=== PATIENT | female | born 1955 | race Caucasian/White ===

== ENCOUNTER 2018-05-07 10:57 | Inpatient (IN) ==
--- NOTE | 2018-05-07 11:34 | Emergency Department Note ---
Disposition Clinical Impression: Pancreatic abnormality, Liver mass Abdominal pain Qualifiers: Abdominal location: epigastric Qualified Code(s): R10.13 - Epigastric pain Disposition: Admitted As Inpatient Condition: Fair General Adult HPI - General Stated complaint: abd pain Time Seen by Provider: 05/07/18 11:00 Source: patient Limitations: no limitations Nursing Notes Reviewed: Yes Vital Signs Reviewed: Yes - History of Present Illness HPI Narrative: 62 y/o F hx DM and COPD present for worsening epigastric pain onset two weeks ago with constant ache and intermitting sharp pain radiation along bra line to back. Radiating pain into thoracic spine between shoulders. No change in pain by food but worse with deep breath. Associated symptoms of fluttering feeling in her chest . For last few months she had episodes of headache & lightheadedness with tunnel vision worse when stands up quickly. Increased dyspnea with exertion but cough at baseline. Pain worse in last four days and her leftover vicodin ran out. Admits worsening reguritation, constipation and nausea but denies vomiting or diarrhea. History of chronic constipation with last BM over 5 days ago non painful History of chest pain work up a few years ago but she doesn't remember what diagnosis was but took nitroglcerin for it. Per past reports in 2017 she had negative stress test and normal Holter monitor. Onset (ago): day(s) Pain Scale: 6 Quality: stabbing, aching Consistency: constant - Related Data Home Medications Medication Instructions Recorded Confirmed Amlodipine Besylate 10 mg PO DAILY 05/07/18 05/07/18 Aspirin [Lo-Dose Aspirin EC] 81 mg PO DAILY 05/07/18 05/07/18 Insulin Glargine,Hum.rec.anlog 28 unit SQ HS 05/07/18 05/07/18 [Lantus Solostar] Levothyroxine Sodium [Levoxyl] 75 mcg PO DAILY 05/07/18 05/07/18 Meloxicam 7.5 mg PO DAILY 05/07/18 05/07/18 Metformin HCl 500 mg PO BID 05/07/18 05/07/18 Pioglitazone HCl 30 mg PO DAILY 05/07/18 05/07/18 Pregabalin [Lyrica] 150 mg PO TID 05/07/18 05/07/18 RX: Furosemide [Lasix] 20 mg PO DAILY 05/07/18 05/07/18 RX: Lisinopril [Zestril] 20 mg PO DAILY 05/07/18 05/07/18 Rosuvastatin Calcium 40 mg PO DAILY 05/07/18 05/07/18 Tizanidine HCl 4 mg PO HS 05/07/18 05/07/18 Allergies Allergy/AdvReac Type Severity Reaction Status Date / Time codeine AdvReac Vomiting Verified 05/07/18 11:12 Eyes: Reports: vision change Cardiovascular: Reports: palpitations, dyspnea on exertion. Denies: chest pain Respiratory: Reports: cough, dyspnea, wheezes Gastrointestinal: Reports: abdominal pain, nausea, constipation. Denies: vomiting, diarrhea Genitourinary: Denies: urgency, dysuria, frequency Musculoskeletal: Reports: back pain, myalgia Integumentary: Denies: rash Neurological: Reports: headache, weakness Psychiatric: Reports: anxiety Past Medical History - Past Medical History Medical history: Reports: arthritis, diabetes, fibromyalgia, hypertension, other Psychiatric history: Reports: no psych history - Social History Smoking Status: Current every day smoker Smokeless Tobacco Status: No Alcohol use: Reports: none Drug use: Reports: none Physical Exam - General Limitations: no limitations General appearance: alert, in no apparent distress - Head Head exam: atraumatic, normocephalic - Eye Eye exam: Present: normal appearance, EOMI - Neck Neck exam: Present: normal inspection, full ROM - Chest Chest inspection: Present: normal inspection, symmetric chest wall rise. Absent: tenderness - Respiratory Respiratory exam: Present: normal lung sounds bilaterally. Absent: respiratory distress, wheezes - Cardiovascular Cardiovascular exam: Present: regular rate, normal rhythm, normal heart sounds - Abdominal Exam Abdominal exam: Present: soft, tenderness, distention, hypoactive bowel sounds, mass (deep siomara mass appro 2 cm in diameter located in epigastric region, non- pulsing). Absent: guarding, rebound Abdominal tenderness: Present: epigastrium - Extremities Exam Extremities exam: Present: normal inspection, full ROM. Absent: tenderness, pedal edema - Back Exam Back exam: Present: normal inspection, full ROM. Absent: tenderness, vertebral tenderness - Neurological Exam Neurological exam: Present: alert, oriented X3 - Psychiatric Psychiatric exam: Present: agitated, anxious - Skin Skin exam: Present: warm, dry, intact. Absent: rash, erythema Course Vital Signs Temperature 97.5 F L 05/07/18 11:01 Pulse Rate 75 05/07/18 11:01 Respiratory Rate 20 05/07/18 11:01 Blood Pressure 137/50 05/07/18 11:01 O2 Sat by Pulse Oximetry 99 05/07/18 11:01 Temperature 97.5 F L 05/07/18 11:07 Pulse Rate 95 05/07/18 14:09 Respiratory Rate 16 05/07/18 14:09 Blood Pressure 125/75 05/07/18 14:09 O2 Sat by Pulse Oximetry 96 05/07/18 14:09 Oxygen Delivery Oxygen Delivery Room Air Medical Decision Making - MDM Narrative Medical decision making narrative: 62 y/o F with hx DM, CKD and COPD presents with with severe epiastric and right chest pain radiation to her pain with nonspecific associated symptoms leading to wide ddx of gastric ulcer, cholecystitis, ACS, and pancreatitis. Stable vitals with mild tachycardia and stable ekg on presentation followed with essentially normal labs of CBC, CMP, troponin, lactic acid and lipase. Imaging of chest X- ray and US RUQ was grossly unremarkable. 1345 CT abd showed pancreatic mass and liver mass concerning for pancreatic cancer. Dr Colon spoke with Dr Saldana with Oncology about case who advised admission for pain and nausea control. They suggested CEA and CA -19 biomarkers and anticipate that she may need liver biopsy [address] Klein with hospitalist service and accepted for in patient treatment - Medical Records Medical records reviewed: Yes I reviewed the patient's medical records. - Lab Data Lab results reviewed: Yes I reviewed the patient's lab results. Result diagrams: 05/07/18 11:06 05/07/18 11:06 Lab Results 05/07/18 05/07/18 05/07/18 Range/Units 11:06 11:06 11:30 WBC 6.7 (4.3-11.1) K/mcL RBC 4.86 (3.82-4.97) M/mcL Hgb 14.1 (11.5-15.4) g/dL Hct 42.3 (35.3-44.9) % MCV 87.0 (83.0-100.0) fL MCH 29.0 (28.0-33.3) pg MCHC 33.3 (31.6-35.5) g/dL RDW 13.7 (11.5-14.5) % Plt Count 189 (140-400) K/mcL MPV 11.2 (9.4-12.4) fL Immature Gran % 0.1 (0-4) % Seg Neutrophils % 60.7 % Lymphocytes % 26.1 % Monocytes % 9.1 % Eosinophils % 3.7 % Basophils % 0.3 % Neutrophils # 4.1 (1.6-8.9) K/mcL Lymphocytes # 1.8 (0.6-4.6) K/mcL Monocytes # 0.6 (0.0-1.3) K/mcL Eosinophils # 0.3 (0.0-0.6) K/mcL Basophils # 0.0 (0.0-0.2) K/mcL PT (9.4-12.1) Seconds INR Sodium 141 (136-145) mEq/L Potassium 3.5 (3.5-5.1) mEq/L Chloride 109 H (98-107) mEq/L Carbon Dioxide 22 L (23-29) mEq/L BUN 19 (8-23) mg/dL Creatinine 0.79 (0.60-1.20) mg/dL Est GFR ( Amer) > 60 (> 60) Est GFR (Non-Af Amer) > 60 (> 60) BUN/Creatinine Ratio 24 (6-26) Glucose 130 H (70-105) mg/dL Calculated Osmolality 296 (280-300) Lactic Acid 1.2 (0.5-2.2) mmol/L Calcium 10.0 (8.6-10.3) mg/dL Total Bilirubin 0.8 (0.3-1.0) mg/dL Direct Bilirubin 0.2 (0.0-0.2) mg/dL Indirect Bilirubin 0.6 (0.0-1.2) mg/dL AST 15 (13-39) Units/L ALT 11 (7-52) Units/L Alkaline Phosphatase 96 (34-104) Units/L Troponin I < 0.03 (< 0.04) ng/mL Serum Total Protein 7.4 (6.4-8.9) g/dL Albumin 4.4 (3.5-5.7) g/dL Globulin 3.0 (2.4-3.5) g/dL Albumin/Globulin Ratio 1.5 (1.1-2.2) Lipase 37 (11-82) Units/L Carcinoembryonic Ag 67.3 H (Less than 5.0) ng/mL Urine Color (Yellow) Urine Clarity (Clear) Urine pH (5.0-8.0) pH Units Ur Specific [place] (1.010-1.025) Urine Protein (Neg-Trace) mg/dL Urine Glucose (UA) (Normal) mg/dL Urine Ketones (Negative) mg/dL Urine Blood (Negative) Urine Nitrite (Negative) Urine Bilirubin (Negative) Urine Urobilinogen (Normal) mg/dL Ur Leukocyte Esterase (Negative) Urine Microscopic RBC (0-3) per hpf Urine Microscopic WBC (0-3) per hpf Ur Squamous Epith Cells (None-Few) per lpf Urine Bacteria (None-Few) per hpf Hyaline Casts (None-Few) per lpf Ur Culture Indicated? (NO) 05/07/18 05/07/18 Range/Units 11:30 13:05 WBC (4.3-11.1) K/mcL RBC (3.82-4.97) M/mcL Hgb (11.5-15.4) g/dL Hct (35.3-44.9) % MCV (83.0-100.0) fL MCH (28.0-33.3) pg MCHC (31.6-35.5) g/dL RDW (11.5-14.5) % Plt Count (140-400) K/mcL MPV (9.4-12.4) fL Immature Gran % (0-4) % Seg Neutrophils % % Lymphocytes % % Monocytes % % Eosinophils % % Basophils % % Neutrophils # (1.6-8.9) K/mcL Lymphocytes # (0.6-4.6) K/mcL Monocytes # (0.0-1.3) K/mcL Eosinophils # (0.0-0.6) K/mcL Basophils # (0.0-0.2) K/mcL PT 13.1 H (9.4-12.1) Seconds INR 1.2 Sodium (136-145) mEq/L Potassium (3.5-5.1) mEq/L Chloride (98-107) mEq/L Carbon Dioxide (23-29) mEq/L BUN (8-23) mg/dL Creatinine (0.60-1.20) mg/dL Est GFR ( Amer) (> 60) Est GFR (Non-Af Amer) (> 60) BUN/Creatinine Ratio (6-26) Glucose (70-105) mg/dL Calculated Osmolality (280-300) Lactic Acid (0.5-2.2) mmol/L Calcium (8.6-10.3) mg/dL Total Bilirubin (0.3-1.0) mg/dL Direct Bilirubin (0.0-0.2) mg/dL Indirect Bilirubin (0.0-1.2) mg/dL AST (13-39) Units/L ALT (7-52) Units/L Alkaline Phosphatase (34-104) Units/L Troponin I (< 0.04) ng/mL Serum Total Protein (6.4-8.9) g/dL Albumin (3.5-5.7) g/dL Globulin (2.4-3.5) g/dL Albumin/Globulin Ratio (1.1-2.2) Lipase (11-82) Units/L Carcinoembryonic Ag (Less than 5.0) ng/mL Urine Color Yellow (Yellow) Urine Clarity Clear (Clear) Urine pH 6.5 (5.0-8.0) pH Units Ur Specific [place] 1.022 (1.010-1.025) Urine Protein Negative (Neg-Trace) mg/dL Urine Glucose (UA) Normal (Normal) mg/dL Urine Ketones Negative (Negative) mg/dL Urine Blood Negative (Negative) Urine Nitrite Negative (Negative) Urine Bilirubin Negative (Negative) Urine Urobilinogen Normal (Normal) mg/dL Ur Leukocyte Esterase Small H (Negative) Urine Microscopic RBC 0-3 (0-3) per hpf Urine Microscopic WBC 0-3 (0-3) per hpf Ur Squamous Epith Cells Moderate H (None-Few) per lpf Urine Bacteria None Seen (None-Few) per hpf Hyaline Casts None Seen (None-Few) per lpf Ur Culture Indicated? YES A (NO) - Radiology Data Radiology results reviewed: Yes I reviewed the patient's radiology results. Chest X-Ray 05/07/18 11:25 IMPRESSION: Focal area of lingular atelectasis or fibrosis. D/ / 05/07/2018 11:55:23 Jim Rodrigez MD / [facility] Interpreting Provider: Jim Rodrigez MD Abdomen/Pelvis CT 05/07/18 11:37 IMPRESSION: 1. Abnormal 3.7 x 3.6 cm heterogeneous though primarily low-attenuation mass within the pancreas, at the interface of the pancreatic body and pancreatic head, most consistent with primary pancreatic malignancy. There is associated obstruction of the pancreatic duct with dilatation evident and mild inflammatory change of the pancreatic tail, likely secondary to inflammation. 2. Multiple scattered nodules within the liver parenchyma, consistent with intrahepatic metastatic disease. 3. Mild lymphadenopathy within the peripancreatic space and dov hepatis, consistent with locoregional metastatic disease. 4. Cholelithiasis. Findings were discussed with Rayo Mccrary at 1330 hours on 05/07/2018. D/ / 05/07/2018 13:47:34 Deni Sterling MD / [facility] Interpreting Provider: Deni Sterling MD Gallbladder Ultrasound 05/07/18 11:37 IMPRESSION: Unremarkable right upper quadrant ultrasound. D/ / 05/07/2018 12:58:43 Jim Rodrigez MD / [facility] Interpreting Provider: Jim Rodrigez MD - EKG Data EKG #1 EKG shows normal: sinus rhythm, intervals, QRS complexes, ST-T waves Rate: normal Rhythm: NSR Interpretation: unchanged when compared to prior tracing (date) (01-15-2016) Attestation Statement - Attestation Attestation: Resident Attestation: I examined this patient and my medical decision making was reviewed with the Resident Physician. I agree with the documented findings, disposition and treatment plan as described except to the extent set forth below. We independently had [id number] contact with the patient. Patient presented for evaluation of worsening epigastric pain over the last 2 weeks. Patient describes intermittent pain radiating to the back. Patient describes pain between shoulder blades. Patient describes no specific characteristics is is not always worse with food and is not always worse with deep breaths. This time she does have significant nausea as well as significant pain. Patient has moderate epigastric tenderness. Patient will undergo further evaluation for both right upper quadrant tenderness as well as epigastric tenderness. Mild distress secondary to pain with moderate associated tenderness to the epigastric region without guarding or rebound. CT scan concerning for pancreatic lesion with metastasis to the liver. I did discuss with hematology oncology in regards to management and he requested a CEA as well as a CA 199. The patient will likely need to undergo liver biopsy with IR. Patient will be admitted for further symptom control as well as workup. I did discuss the diagnosis at bedside with both patient as well as son. All questions were answered to the best that we can at this time.
[2018-05-07] MEDS ORDERED: Ondansetron 4 MG/2 ML VIAL IVP ONE (11:36)
[2018-05-07] MEDS ORDERED: 0.9 % Sodium Chloride 1,000 ML IVC ONE (11:36)
[2018-05-07] MEDS ORDERED: *HR* HYDROmorphone 2 MG/ML SYRINGE IVP STA (11:36)
[2018-05-07] MEDS ORDERED: Isovue-370 500 ML BOTTLE IVP ONE (11:37)
[2018-05-07] MEDS ORDERED: Famotidine 20 MG/2 ML VIAL IVP ONE (11:40)
[2018-05-07 11:45] LABS: Basophils % 0.3 %; Eosinophils # 0.3 K/mcL (0.0-0.6); Eosinophils % 3.7 %; Hematocrit 42.3 % (35.3-44.9); Hemoglobin 14.1 g/dL (11.5-15.4); Immature Granulocytes % 0.1 % (0-4); Lymphocytes # 1.8 K/mcL (0.6-4.6); Lymphocytes % 26.1 %; Mean Corpuscular HGB Conc 33.3 g/dL (31.6-35.5); Mean Platelet Volume 11.2 fL (9.4-12.4); Monocytes # 0.6 K/mcL (0.0-1.3); Monocytes % 9.1 %; Neutrophils # 4.1 K/mcL (1.6-8.9); Platelet Count 189 K/mcL (140-400); Red Blood Count 4.86 M/mcL (3.82-4.97); Red Cell Distribution Width 13.7 % (11.5-14.5); Segmented Neutrophils % 60.7 %
[2018-05-07 12:05] LABS: Troponin I < 0.03 ng/mL (< 0.04)
[2018-05-07 12:06] LABS: Alanine Aminotransferase 11 Units/L (7-52); Albumin 4.4 g/dL (3.5-5.7); Albumin/Globulin Ratio 1.5 (1.1-2.2); Alkaline Phosphatase 96 Units/L (34-104); Aspartate Amino Transferase 15 Units/L (13-39); BUN/Creatinine Ratio 24 (6-26); Bilirubin,Direct 0.2 mg/dL (0.0-0.2); Bilirubin,Indirect 0.6 mg/dL (0.0-1.2); Bilirubin,Total 0.8 mg/dL (0.3-1.0); Blood Urea Nitrogen 19 mg/dL (8-23); Carbon Dioxide 22 mEq/L (23-29); Chloride 109 mEq/L (98-107); Glucose 130 mg/dL (70-105); Lipase 37 Units/L (11-82); Osmolality,Calculated 296 (280-300); Potassium 3.5 mEq/L (3.5-5.1); Sodium 141 mEq/L (136-145); Total Protein 7.4 g/dL (6.4-8.9); eGFR For Non-African Americans > 60 (> 60)
[2018-05-07] MEDS ORDERED: GI Cocktail 40 ML EACH PO ONE (13:11)
[2018-05-07 13:14] LABS: Bilirubin,Urine Negative (Negative); Blood,Urine Negative (Negative); Clarity,Urine Clear (Clear); Color,Urine Yellow (Yellow); Glucose,Urine (UA) Normal (Normal); Ketones,Urine Negative (Negative); Leukocyte Esterase,Urine Small (Negative); Nitrite,Urine Negative (Negative); PH,Urine 6.5 pH Units (5.0-8.0); Protein,Urine Negative (Neg-Trace); Specific Gravity,Urine 1.022 (1.010-1.025); Urobilinogen,Urine Normal (Normal)
[2018-05-07 13:16] LABS: Bacteria,Urine None Seen per hpf (None-Few); Hyaline Casts,Urine None Seen per lpf (None-Few); RBC,Urine 0-3 per hpf (0-3); Squamous Epithelial Cell,Urine Moderate per lpf (None-Few); WBC,Urine 0-3 per hpf (0-3)
[2018-05-07] MEDS ORDERED: Ondansetron ODT 4 MG TAB.RAPDIS SL PRN (13:45)
[2018-05-07] MEDS ORDERED: *HR* HYDROmorphone (PF) 1 MG/ML SYRINGE IVP PRN (13:59)
[2018-05-07 14:12] LABS: INR 1.2; Prothrombin Time 13.1 Seconds (9.4-12.1)
[2018-05-07 14:27] LABS: Carcinoembryonic Antigen 67.3 ng/mL (Less than 5.0)
[2018-05-07] MEDS ORDERED: 0.9 % Sodium Chloride 1,000 ML IVC SCH (14:30)
[2018-05-07] MEDS ORDERED: Naloxone 0.4 MG/ML INJ IVP PRN (15:00)
--- NOTE | 2018-05-07 15:04 | Internal Med History&Physical ---
Date of Encounter: 05/07/18 Time of Encounter: 15:02 Internal Medicine - H&P: HPI Chief complaint: abdominal pain Admitted From: Home Plans for Post Hospital Care: Home History of present illness: Ms. Arora is a 62 year old female past medical history of diabetes, COPD, fibromyalgia, Hypertension and chronic back pain who came in with complain of 2 weeks of abdominal pain. Patient denies similar pain in past. Pain is present in epigastric and right upper quadrant region. Patient has associated nausea but denies any vomiting. Pain is more or less constant along the lower end of his chest along her bra line. The pain does radiate to her back. Pain is constant and sharp in nature and has been worsening over the course of the past 2 weeks. Pain does worse with deep breath. She has history of COPD and associ ated difficulty breathing but denies any unusually worsening of her breathing. She denies any burning urination. She does have some constipation.. She was using hydrocodone for past 3 days which she had left over from past. She had decreased appetite over past few weeks but does not know whether she had any significant weight loss. She does experience hot flashes for many years. Patient had initial workup done in ER. Patient had CT abdomen and pelvis and gallbladder ultrasound. There was no evidence of cholecystitis or ascites. CT showed 3.7 x 3.6 masses within pancreas and multiple scattered nodules within the liver parenchyma and mild peripancreatic lymphadenopathy. About mention history was confirmed during the interview. Patient was informed about the results of the CAT scan and was tearful on interview. Patient continued to have some nausea during the interview. Oncology was called in by ER physician. Past Med Surg Social Fam HX - Past Medical History Medical history: arthritis, diabetes, fibromyalgia, hypertension, other Additional medical history: chronic back pain, chronic hip pain Psychiatric history: no psych history - Past Surgical History Surgical History: no surgical history - Social History Smoking Status: Current every day smoker Smokeless Tobacco Status: No Alcohol use: none Drug use: none - Family History Sister Hx Family Reproductive Disorders: Yes Internal Medicine - H&P: Meds Amlodipine Besylate 10 mg PO DAILY 05/07/18 [History] Aspirin [Lo-Dose Aspirin EC] 81 mg PO DAILY 05/07/18 [History] Furosemide [Lasix] 20 mg PO DAILY 05/07/18 [History] Insulin Glargine,Hum.rec.anlog [Lantus Solostar] 28 unit SQ HS 05/07/18 [History] Levothyroxine Sodium [Levoxyl] 75 mcg PO DAILY 05/07/18 [History] Lisinopril [Zestril] 20 mg PO DAILY 05/07/18 [History] Meloxicam 7.5 mg PO DAILY 05/07/18 [History] Metformin HCl 500 mg PO BID 05/07/18 [History] Pioglitazone HCl 30 mg PO DAILY 05/07/18 [History] Pregabalin [Lyrica] 150 mg PO TID 05/07/18 [History] Rosuvastatin Calcium 40 mg PO DAILY 05/07/18 [History] Tizanidine HCl 4 mg PO HS 05/07/18 [History] Allergy/AdvReac Type Severity Reaction Status Date / Time codeine AdvReac Vomiting Verified 05/07/18 11:12 All Systems PM: A 10-system review of systems was performed and is negative for pertinent findings except as documented above in the HPI. - Constitutional Vitals: Temp Pulse Resp BP Pulse Ox 97.5 F L 85 16 118/76 96 05/07/18 11:07 05/07/18 14:56 05/07/18 14:56 05/07/18 14:56 05/07/18 14:56 Exam: Constitutional: Vitals as noted. Conversant. No Apparent Distress. Eyes : Sclera white, conjunctiva clear, no lid lag, PEARLA. ENT : Grossly normal hearing. Oropharyngeal exam unremarkable. Moist mucus membranes. No JVD, no cervical lymphadenopathy. no thyromegaly or mass. Respiratory : mild crackles at base. No accessory muscle use, rales, rhonchi or wheezes Cardiovascular : RRR, +S1, +S2. no murmur, gallop, rubs. No chest wall tenderness GI/Abdominal : Obese, Soft, Non-tender, Non-distended, normal bowel sounds, soft, no peritoneal signs. no orgenomegaly or mass appreciated. no hernia. Musculoskeletal: no deformity noted. no edema or cyanosis. warm extremities, p ulses palpable and symmetrical in UE/LE. no calf tenderness. Neurological: AO X3, CN II-XII grossly intact, grossly normal motor and sensory exam. Skin: No skin rash, lesions or ulcers noted. Pych: Good insight and judgement. Intact memory. AOx3. Tearful Internal Med - H&P Results - Labs CBC & Chem 7: 05/07/18 11:06 05/07/18 11:06 Labs: Short CBC 05/07/18 Range/Units 11:06 WBC 6.7 (4.3-11.1) K/mcL Hgb 14.1 (11.5-15.4) g/dL Hct 42.3 (35.3-44.9) % Plt Count 189 (140-400) K/mcL Neutrophils # 4.1 (1.6-8.9) K/mcL BMP 05/07/18 11:06 Sodium 141 Potassium 3.5 Chloride 109 H Carbon Dioxide 22 L BUN 19 Creatinine 0.79 Glucose 130 H Calcium 10.0 Cardiac Enzymes 05/07/18 Range/Units 11:06 Troponin I < 0.03 (< 0.04) ng/mL Liver Function 05/07/18 Range/Units 11:06 Total Bilirubin 0.8 (0.3-1.0) mg/dL Direct Bilirubin 0.2 (0.0-0.2) mg/dL AST 15 (13-39) Units/L ALT 11 (7-52) Units/L Alkaline Phosphatase 96 (34-104) Units/L Albumin 4.4 (3.5-5.7) g/dL Urine 05/07/18 Range/Units 13:05 Urine Color Yellow (Yellow) Urine Clarity Clear (Clear) Urine pH 6.5 (5.0-8.0) pH Units Ur Specific [place] 1.022 (1.010-1.025) Urine Protein Negative (Neg-Trace) mg/dL Urine Glucose (UA) Normal (Normal) mg/dL - EKG Data -: EKG Interpreted by Myself EKG shows normal: sinus rhythm - Impressions ITS Impressions Chest X-Ray 05/07/18 11:25 IMPRESSION: Focal area of lingular atelectasis or fibrosis. D/ / 05/07/2018 11:55:23 Jim Rodrigez MD / [facility] Interpreting Provider: Jim Rodrigez MD Abdomen/Pelvis CT 05/07/18 11:37 IMPRESSION: 1. Abnormal 3.7 x 3.6 cm heterogeneous though primarily low-attenuation mass within the pancreas, at the interface of the pancreatic body and pancreatic head, most consistent with primary pancreatic malignancy. There is associated obstruction of the pancreatic duct with dilatation evident and mild inflammatory change of the pancreatic tail, likely secondary to inflammation. 2. Multiple scattered nodules within the liver parenchyma, consistent with intrahepatic metastatic disease. 3. Mild lymphadenopathy within the peripancreatic space and dov hepatis, consistent with locoregional metastatic disease. 4. Cholelithiasis. Findings were discussed with Rayo Mccrary at 1330 hours on 05/07/2018. D/ / 05/07/2018 13:47:34 Deni Sterling MD / [facility] Interpreting Provider: Deni Sterling MD Gallbladder Ultrasound 05/07/18 11:37 IMPRESSION: Unremarkable right upper quadrant ultrasound. D/ / 05/07/2018 12:58:43 Jim Rodrigez MD / [facility] Interpreting Provider: Jim Rodrigez MD - Assessment and plan (1) Pancreatic mass Current Visit: Yes Status: Acute Assessment and plan: - Patient's abdominal pain likely related to pancreatic mass - CT evidence of likely metastasis to liver with possible local regional metastasis. - Oncology has been consulted who ordered CEA and CA -19 biomarkers. - Patient will likely need biopsy IR guided on Wednesday of liver lesion. - We will control symptoms of nausea and vomiting and abdominal pain with Zofran and percocet. (2) Diabetes Current Visit: Yes Status: Acute Assessment and plan: - Keep patient on levemir, sliding scale insulin and accuchecks. Qualifiers: Diabetes mellitus type: type 2 Diabetes mellitus penitentiary insulin use: with penitentiary use Qualified Code(s): E11.9 - Type 2 diabetes mellitus without complications; Z79.4 - MCC (current) use of insulin (3) HTN (hypertension) Current Visit: Yes Status: Acute Assessment and plan: - BP stable - continue home medication after confirmation Qualifiers: Hypertension type: essential hypertension Qualified Code(s): I10 - Essential (primary) hypertension (4) Fibromyalgia Current Visit: Yes Status: Acute Assessment and plan: - continue home medication after confirmation (5) Abdominal pain Current Visit: Yes Status: Acute Qualifiers: Abdominal location: epigastric Qualified Code(s): R10.13 - Epigastric pain (6) Liver mass Current Visit: Yes Status: Acute Assessment and plan: as above - Time Spent With Patient Total time spent is greater than 50% in coordination of care (as documented) at patient's floor/unit and/or counseling patient:
[2018-05-07] MEDS: *HR* Heparin 5,000 UNIT/ML VIAL SQ SCH ×2 (16:05→21:17)
[2018-05-07] MEDS: *HR* Promethazine 25 MG/ML VIAL IVP PRN (16:43)
[2018-05-07] MEDS: Insulin LISPRO 300 UNITS/3 ML VIAL SQ SCH (17:00)
[2018-05-07] MEDS ORDERED: Insulin DETEMIR 100 UNIT/ML X5UNITS SQ SCH (21:00)
[2018-05-07] MEDS: Pregabalin 75 MG CAPSULE PO SCH (21:17)
[2018-05-07] MEDS: tiZANidine 4 MG TABLET PO SCH (21:17)
[2018-05-08] MEDS: *HR* OxyCODONE/APAP 5/325 TABLET PO PRN ×3 (01:25→17:53)
[2018-05-08] MEDS ORDERED: traMADol 50 MG TABLET PO ONE (03:57)
[2018-05-08] MEDS: *HR* Heparin 5,000 UNIT/ML VIAL SQ SCH ×3 (04:08→20:42)
[2018-05-08] MEDS: Insulin LISPRO 300 UNITS/3 ML VIAL SQ SCH ×3 (07:56→17:53)
[2018-05-08] MEDS: amLODIPine 5 MG TABLET PO SCH (08:04)
[2018-05-08] MEDS: Lisinopril 20 MG TABLET PO SCH (08:05)
[2018-05-08] MEDS: Pregabalin 75 MG CAPSULE PO SCH ×3 (08:35→20:41)
[2018-05-08] MEDS: Furosemide 20 MG TABLET PO SCH (08:35)
[2018-05-08] MEDS ORDERED: Aspirin Enteric Coated 81 MG Tablet PO SCH (09:00)
--- NOTE | 2018-05-08 09:57 | Internal Med Progress Note ---
Hospitalist Progress Note - Encounter Date of Encounter: 05/08/18 Time of Encounter: 08:57 - Subjective Interval History: Patient seen and examined this morning. No overnight events. Pain better controlled than before but still present. Nausea improved. Denies new complains. - Exam Vitals: Temp Pulse Resp BP Pulse Ox 97.4 F L 59 16 113/68 96 05/08/18 07:14 05/08/18 07:14 05/08/18 07:14 05/08/18 07:14 05/08/18 07:14 Exam: Constitutional: Vitals as noted. Conversant. No Apparent Distress. Respiratory : mild crackles at base. No accessory muscle use, rales, rhonchi or wheezes Cardiovascular : RRR, +S1, +S2. no murmur, gallop, rubs. No chest wall tenderness GI/Abdominal : Obese, Soft, mild tenderness in RLQ, Non-distended, normal bowel sounds, soft, no peritoneal signs Musculoskeletal: no deformity noted. no edema or cyanosis. Neurological: AO X3, CN II-XII grossly intact, grossly normal motor and sensory exam. Pych: Good insight and judgement. Intact memory. AOx3. Tearful - Assessment and Plan (1) Pancreatic mass Current Visit: Yes Status: Acute (2) Diabetes Current Visit: Yes Status: Acute (3) HTN (hypertension) Current Visit: Yes Status: Acute (4) Fibromyalgia Current Visit: Yes Status: Acute (5) Abdominal pain Current Visit: Yes Status: Acute (6) Liver mass Current Visit: Yes Status: Acute (7) Lung nodule Current Visit: Yes Status: Acute - Summary of Assessment and Plan Summary of Assessment and Plan: Pancreatic mass - Patient's abdominal pain likely related to pancreatic mass - CT evidence of likely metastasis to liver with possible local regional metastasis. - Oncology consulted - CEA elevated and CA -19 pending - Will get Chest CT for metastatic workup. Also with h/o lung nodule - Plan for IR guided biopsy tomorrow of liver lesion. aspirin stopped. NPO after midnight - We will control symptoms of nausea and vomiting and abdominal pain with Zofran and percocet. Diabetes - c/w levemir, sliding scale insulin and accuchecks. Abnormal UA - Denies symptoms - Cultures negative - No antibiotics indicated. HTN - BP stable - continue home medication after confirmation Fibromyalgia - continue home medication after confirmation - Time Spent with Patient Total time spent is greater than 50% in coordination of care (as documented) at patient's floor/unit and/or counseling patient: Internal Medicine: Result - Labs CBC & Chem 7: 05/07/18 11:06 05/07/18 11:06 Labs: Short CBC 05/07/18 Range/Units 11:06 WBC 6.7 (4.3-11.1) K/mcL Hgb 14.1 (11.5-15.4) g/dL Hct 42.3 (35.3-44.9) % Plt Count 189 (140-400) K/mcL Neutrophils # 4.1 (1.6-8.9) K/mcL BMP 05/07/18 11:06 Sodium 141 Potassium 3.5 Chloride 109 H Carbon Dioxide 22 L BUN 19 Creatinine 0.79 Glucose 130 H Calcium 10.0 Cardiac Enzymes 05/07/18 Range/Units 11:06 Troponin I < 0.03 (< 0.04) ng/mL Liver Function 05/07/18 Range/Units 11:06 Total Bilirubin 0.8 (0.3-1.0) mg/dL Direct Bilirubin 0.2 (0.0-0.2) mg/dL AST 15 (13-39) Units/L ALT 11 (7-52) Units/L Alkaline Phosphatase 96 (34-104) Units/L Albumin 4.4 (3.5-5.7) g/dL Urine 05/07/18 Range/Units 13:05 Urine Color Yellow (Yellow) Urine Clarity Clear (Clear) Urine pH 6.5 (5.0-8.0) pH Units Ur Specific [place] 1.022 (1.010-1.025) Urine Protein Negative (Neg-Trace) mg/dL Urine Glucose (UA) Normal (Normal) mg/dL - ABG Interpretation ABG results: PT/INR, D-dimer PT 13.1 Seconds (9.4-12.1) H 05/07/18 11:30 - Impressions Impressions Chest X-Ray 05/07/18 11:25 IMPRESSION: Focal area of lingular atelectasis or fibrosis. D/ / 05/07/2018 11:55:23 Jim Rodrigez MD / [facility] Interpreting Provider: Jim Rodrigez MD Abdomen/Pelvis CT 05/07/18 11:37 IMPRESSION: 1. Abnormal 3.7 x 3.6 cm heterogeneous, though primarily low-attenuation, mass within the pancreas, at the interface of the pancreatic body and pancreatic head, most consistent with primary pancreatic malignancy. There is associated obstruction of the pancreatic duct with dilatation evident and mild inflammatory change of the pancreatic tail, likely secondary to ductal obstruction. 2. Multiple scattered nodules/masses within the liver parenchyma, consistent with intrahepatic metastatic disease. 3. Mild lymphadenopathy within the peripancreatic space and dov hepatis, consistent with locoregional metastatic disease. 4. Cholelithiasis. Findings were discussed with Rayo Mccrary at 1330 hours on 05/07/2018. D/ / 05/07/2018 13:47:34 Deni Sterling MD / [facility] Interpreting Provider: Deni Sterling MD Gallbladder Ultrasound 05/07/18 11:37 IMPRESSION: Unremarkable right upper quadrant ultrasound. D/ / 05/07/2018 12:58:43 Jim Rodrigez MD / [facility] Interpreting Provider: Jim Rodrigez MD Consult Discharge Plan - Plan Referrals: Ward Jordan DO [Primary Care Provider] - (2) Diabetes Qualifiers: Diabetes mellitus type: type 2 Diabetes mellitus fpc insulin use: with remote computer terminal operator use (3) HTN (hypertension) Qualifiers: Hypertension type: essential hypertension Qualified Code(s): I10 - Essential (primary) hypertension (5) Abdominal pain Qualifiers: Abdominal location: epigastric Qualified Code(s): R10.13 - Epigastric pain
--- NOTE | 2018-05-08 11:33 | Oncology Inp Consult Note ---
Date of Encounter: 05/09/18 Time of Encounter: 09:00 Assessment and Plan (1) Pancreatic mass Status: Acute Assessment and plan: pancreatic mass with possible metastatic disease in liver, with acute pain admitted for pain control and further work up. Imaging data reviewed, discussed with ED and hospital attending for liver biopsy in AM to obtain tissue diagnosis. LFTs, bilirubin is normal. CEA elevated and CA 19-9 pending. Complete work up with CT chest--findings reviewed. Possible diagnoses discussed with patient this morning. She is agreeable for a biopsy procedure. However patient is very reluctant to proceed with any sort of treatment which she states she does not want chemotherapy or surgery for her cancer. Pain control is adequate. She denies any emesis. Prognosis with and without treatment if malignancy is confirmed/presence of metastatic disease discussed with patient. Possible plan to d/c after biopsy if stable. - Data of Consult Requesting Physician: Dennis Estrada Primary Care Provider: Ward Jordan DO - Consult Narrative Reason for consult: pancreatic mass History of present illness: 62 yo female with medical history significant for COPD, HTN, hyperlipidemia, DM, hypothyroidism fibromyalgia who presented to [facility] ED with epigastric and back pain worsened 2 wks in duration with nausea. A CT abdomen with contrast showed an abnormal irregular mass at the interface of the pancreatic head with the pancreatic body, which appears heterogeneous in attenuation, and measures approximately 3.7 x 3.6 cm, multiple liver densities that could be metastatic. She is admitted for further w/u of pancreatic mass and for pain control. She is on hydromorphone for pain relief. GB US for RUQ pain was nl. CEA at 60~. Patient this morning reports that her symptoms started about 2 months ago when she was not feeling well. She denies much weight loss. Her pain is better controlled today. She denies any melena or hematochezia. Past Med Surg Social Fam HX - Past Medical History Medical history: arthritis, diabetes, fibromyalgia, hypertension, other Additional medical history: chronic back pain, chronic hip pain Psychiatric history: no psych history - Past Surgical History Surgical History: no surgical history - Social History Smoking Status: Current every day smoker Packs per day: 2 Smokeless Tobacco Status: No Alcohol use: none Drug use: none - Family History Sister Hx Family Reproductive Disorders: Yes Medications and Allergies Amlodipine Besylate 10 mg PO DAILY 05/07/18 [History] Aspirin [Lo-Dose Aspirin EC] 81 mg PO DAILY 05/07/18 [History] Furosemide [Lasix] 20 mg PO DAILY 05/07/18 [History] Insulin Glargine,Hum.rec.anlog [Lantus Solostar] 28 unit SQ HS 05/07/18 [History] Levothyroxine Sodium [Levoxyl] 75 mcg PO DAILY 05/07/18 [History] Lisinopril [Zestril] 20 mg PO DAILY 05/07/18 [History] Meloxicam 7.5 mg PO DAILY 05/07/18 [History] Metformin HCl 500 mg PO BID 05/07/18 [History] Pioglitazone HCl 30 mg PO DAILY 05/07/18 [History] Pregabalin [Lyrica] 150 mg PO TID 05/07/18 [History] Rosuvastatin Calcium 40 mg PO DAILY 05/07/18 [History] Tizanidine HCl 4 mg PO HS 05/07/18 [History] Allergy/AdvReac Type Severity Reaction Status Date / Time codeine AdvReac Vomiting Verified 05/07/18 11:12 All systems: reviewed and no additional remarkable complaints except as stated Review of systems: abdominal pain, nausea Oncology - Exam - Constitutional General appearance: no acute distress - Head Head exam: Present: atraumatic, normal inspection - Eye Eye exam: Present: conjuntiva pink, sclera anicteric - ENT ENT exam: Present: mucous membranes moist, normal oropharynx - Neck Neck exam: Present: full ROM Additional comments: no palpable adenopathy - Respiratory Respiratory exam: Present: CTAB Additional comments: bradley ae, clear - Cardiovascular Cardiovascular exam: Present: +S1, +S2 - GI/Abdominal GI/Abdominal exam: Present: distended, normal bowel sounds, soft Additional comments: non tender - Extremities Exam Additional comments: no edema or tenderness - Neurological Exam Neurological exam: Present: alert, CN II-XII intact, oriented X3, no focal deficits - Psychiatric Psychiatric exam: Present: normal mood Oncology Inpatient Results Labs: labs 05/08/[address] abd as noted above Consult Discharge Plan - Plan Referrals: Ward Jordan DO [Primary Care Provider] - Inpatient Charges Provider: Dr. Chely Saldana Consult - Inpatient: [id number]
[2018-05-08] MEDS ORDERED: Gabapentin 300 MG CAPSULE PO SCH (14:30)
[2018-05-08] MEDS: traMADol 50 MG TABLET PO PRN (15:47)
[2018-05-08] MEDS ORDERED: *HR* OxyCODONE Immed Rel 5 MG TABLET PO ONE (20:05)
[2018-05-08] MEDS: Ondansetron 4 MG/2 ML VIAL IVP PRN (20:39)
[2018-05-08] MEDS: tiZANidine 4 MG TABLET PO SCH (20:41)
[2018-05-08] MEDS: Insulin DETEMIR 100 UNIT/ML X5UNITS SQ SCH (20:42)
[2018-05-09] MEDS: *HR* Heparin 5,000 UNIT/ML VIAL SQ SCH ×3 (04:51→21:33)
[2018-05-09] MEDS: *HR* OxyCODONE/APAP 5/325 TABLET PO PRN ×3 (05:40→21:32)
[2018-05-09] MEDS: Pregabalin 75 MG CAPSULE PO SCH ×3 (08:13→21:33)
[2018-05-09] MEDS: Furosemide 20 MG TABLET PO SCH (08:13)
[2018-05-09] MEDS: Insulin LISPRO 300 UNITS/3 ML VIAL SQ SCH ×3 (08:14→17:05)
[2018-05-09] MEDS: Lisinopril 20 MG TABLET PO SCH (08:14)
[2018-05-09] MEDS: amLODIPine 5 MG TABLET PO SCH (08:14)
--- NOTE | 2018-05-09 10:08 | Internal Med Progress Note ---
Hospitalist Progress Note - Encounter Date of Encounter: 05/09/18 Time of Encounter: 10:07 - Subjective Interval History: Patient seen and examined this morning. No overnight events. Pain and Nausea improved. Denies new complains. Somewhat shocked by the news of cancer. Occasionally tearful. - Exam Vitals: Temp Pulse Resp BP Pulse Ox 98.4 F 63 14 98/61 94 05/09/18 06:39 05/09/18 06:39 05/09/18 06:39 05/09/18 06:39 05/09/18 08:10 Exam: Constitutional: Vitals as noted. Conversant. No Apparent Distress. Respiratory : mild crackles at base. No accessory muscle use, rales, rhonchi or wheezes Cardiovascular : RRR, +S1, +S2. no murmur, gallop, rubs. No chest wall tenderness GI/Abdominal : Obese, Soft, mild tenderness in RLQ, Non-distended, normal bowel sounds, soft, no peritoneal signs Musculoskeletal: no deformity noted. no edema or cyanosis. Neurological: AO X3, CN II-XII grossly intact, grossly normal motor and sensory exam. Pych: Good insight and judgement. Intact memory. AOx3. Tearful - Assessment and Plan (1) Pancreatic mass Current Visit: Yes Status: Acute (2) Diabetes Current Visit: Yes Status: Acute (3) HTN (hypertension) Current Visit: Yes Status: Acute (4) Fibromyalgia Current Visit: Yes Status: Acute (5) Abdominal pain Current Visit: Yes Status: Acute (6) Liver mass Current Visit: Yes Status: Acute (7) Lung nodule Current Visit: Yes Status: Acute - Summary of Assessment and Plan Summary of Assessment and Plan: Pancreatic mass - Patient's abdominal pain likely related to pancreatic mass - CT evidence of likely metastasis to liver with possible local regional metastasis. - Oncology following. Recommendations appreciated. - CEA elevated and CA -19 pending - Chest CT with stable lung nodule and other finding previously seen. - Plan for IR guided biopsy today of liver lesion. NPO. Discussed with patient. - c/w symptomatic medications for pain and nausea. Diabetes - c/w levemir, sliding scale insulin and accuchecks. Abnormal UA - Denies symptoms - Cultures negative - No antibiotics indicated. HTN - BP stable - continue home medication Fibromyalgia - continue home medication - Time Spent with Patient Total time spent is greater than 50% in coordination of care (as documented) at patient's floor/unit and/or counseling patient: Internal Medicine: Result - Labs CBC & Chem 7: 05/07/18 11:06 05/07/18 11:06 - ABG Interpretation ABG results: PT/INR, D-dimer PT 13.1 Seconds (9.4-12.1) H 05/07/18 11:30 - Impressions Impressions Chest CT 05/08/18 11:58 IMPRESSION: 1. Cardiomegaly with no evidence of metastatic disease to the chest. 2. Innumerable hepatic lesions concerning for metastatic disease. 3. Peripancreatic edema with indeterminate dov hepatis lymphadenopathy. Refer to CT imaging 05/07/2018. D/ / 05/08/2018 15:24:19 Konstantin Hernandez MD / [facility] Interpreting Provider: Konstantin Hernandez MD Consult Discharge Plan - Plan Referrals: Ward Jordan DO [Primary Care Provider] - (2) Diabetes Qualifiers: Diabetes mellitus type: type 2 Diabetes mellitus intermediate accountant insulin use: with intermediate accountant use (3) HTN (hypertension) Qualifiers: Hypertension type: essential hypertension Qualified Code(s): I10 - Essential (primary) hypertension (5) Abdominal pain Qualifiers: Abdominal location: epigastric Qualified Code(s): R10.13 - Epigastric pain
[2018-05-09] MEDS ORDERED: 0.9 % Sodium Chloride 500 ML ONE (10:13)
[2018-05-09] MEDS ORDERED: *HR* Midazolam HCl 2 MG/2 ML VIAL ONE (10:36)
[2018-05-09] MEDS ORDERED: *HR* FentaNYL (PF) 100 MCG/2 ML VIAL ONE (10:37)
[2018-05-09] MEDS ORDERED: *HR* Midazolam HCl 2 MG/2 ML VIAL IVP ONE (10:43)
[2018-05-09] MEDS ORDERED: *HR* FentaNYL (PF) 100 MCG/2 ML VIAL IVP ONE (10:43)
--- NOTE | 2018-05-09 11:13 | Pre-Sedation Evaluation ---
Pre-sedation evaluation - Pre-sedation checklist Date of procedure: 05/09/18 Procedure: liver bx Recent Vitals: Last Vital Signs Temp 98.4 F 05/09/18 06:39 Pulse 55 05/09/18 10:54 Resp 10 05/09/18 10:54 BP 122/65 05/09/18 10:54 Pulse Ox 98 05/09/18 10:54 H&P (including ROS) documented in medical record: Yes Previous reaction to sedatives/anesthetics: No Dietary Status: NPO after Midnight Airway Assessment: Patient can open mouth completely, TMJ function normal, Micrognathia (under-bite, receding chin) absent, Neck with adequate range of motion Dentition: No loose teeth or bridges Possible difficult airway: No ASA Classification *see protocol: CLASS II-Mild systemic disease Plan of Care: Pt appropriate candidate for procedure/moderate/conscious sedation, Risks/benefits of procedure/sedation discussed w/ patient/family
--- NOTE | 2018-05-09 12:14 | Oncology Inp Progress Note ---
Date of Encounter: 05/09/18 Time of Encounter: 12:30 (1) Constipation Current Visit: Yes Status: Acute Assessment and plan: Patient reports no BM ~7 days Started on senna plus today Qualifiers: Qualified Code(s): K59.00 - Constipation, unspecified (2) Nausea & vomiting Current Visit: Yes Status: Acute Assessment and plan: Intermittent and currently well controlled. Continue zofran and phenergan PRN Consider adding reglan if needed Qualifiers: Qualified Code(s): R11.2 - Nausea with vomiting, unspecified (3) Abdominal pain Current Visit: Yes Status: Acute Assessment and plan: Abdominal pain currently not well controlled, patient reports good control until her biopsy today which caused her pain medication schedule to alter Increased interval so she may receive 1-2 tabs percocet every 4 hours as needed for pain Suspect she would benefit from fentanyl patch, palliative care has been consulted Qualifiers: Abdominal location: epigastric Qualified Code(s): R10.13 - Epigastric pain (4) Pancreatic mass Current Visit: Yes Status: Acute Assessment and plan: CT abdomen/pelvis on admission reveals abnormal 3.7 x 3.6 cm heterogeneous, though primarily low-attenuation, mass within the pancreas, at the interface of the pancreatic body and pancreatic head, most consistent with primary pancreatic malignancy. There is associated obstruction of the pancreatic duct with dilatation evident and mild inflammatory change of the pancreatic tail, likely secondary to ductal obstruction. 2. Multiple scattered nodules/masses within the liver parenchyma, consistent with intrahepatic metastatic disease. 3. Mild lymphadenopathy within the peripancreatic space and dov hepatis, consistent with locoregional metastatic disease. 4. Cholelithiasis. CT chest with no evidence of metastatic disease in chest CEA-67 CA [id number] S/P biopsy liver lesion today Plan: Discussed CT findings with patient and family at bedside today which are concerning for metastatic pancreatic cancer S/P biopsy today with pathology pending We discussed next steps for treatment, however, patient is very reluctant to pursue any treatment Discussed in detail that goal would be to determine tolerable treatment regimen of which is well tolerated and ultimately offer her increased length of survival benefit. Histology is still TBD and we discussed that treatment differs greatly should she be diagnosed with adenocarcinoma of the pancreas versus neuroendo crine carcinoma (although symptoms do not appear consistent with that of neuroendocrine, she denies flushing, diaphoresis or diarrhea, glucose 130 on admission) We also discussed symptomatic control with medications while on treatment Patient continues to decline any wish to pursue and form of treatment, she states she is at peace with her life and wishes to live out her days with her family, not on any form of treatment Recommend continued adjustment of supportive measures as discussed Palliative Care has been consulted, appreciate recommendations Oncology: Subj Interval history: Ms. Arora is resting in bed, family including son and daughter in law are present at bedside. Visibly appears uncomfortable secondary to abdominal pain. Pain has been under decent control until this morning when her medication schedule was interrupted for biopsy. She reports occassional nausea and vomiting but appears to be intermittent and feels as though only associated with some foods. Denies fevers or chills. Reports constipation with no BM in 7 days. - Constitutional General appearance: cooperative, no acute distress, no febrile - Head Head exam: Present: atraumatic - ENT ENT exam: Present: mucous membranes moist, normal oropharynx - Respiratory Respiratory exam: Present: CTAB. Absent: respiratory distress - Cardiovascular Cardiovascular exam: Present: RRR, +S1, +S2 - GI/Abdominal GI/Abdominal exam: Present: distended, hypoactive bowel sounds, soft, tenderness - Extremities Exam Extremities exam: Present: normal inspection. Absent: calf tenderness - Neurological Exam Neurological exam: Present: alert, oriented X3, no focal deficits, strengths equal and symetr throughout - Psychiatric Additional comments: tearful as expected secondary to recent circumstances - Skin Skin exam: Present: dry, intact, normal color, warm Oncology: Obj Data - Labs CBC & Chem 7: 05/07/18 11:06 05/07/18 11:06 Consult Discharge Plan - Plan Referrals: Ward Jordan DO [Primary Care Provider] - 05/16/18 1:00 pm Inpatient Charges Provider: Dr. Chely Saldana
[2018-05-09] MEDS ORDERED: *HR* OxyCODONE/APAP 5/325 TABLET PO PRN (14:04)
[2018-05-09] MEDS ORDERED: Sennosides/Docusate Sodium TABLET PO PRN (14:10)
[2018-05-09] MEDS: traMADol 50 MG TABLET PO PRN (14:47)
--- NOTE | 2018-05-09 16:26 | Palliative - Consult Note ---
Date of Encounter: 05/09/18 Time of Encounter: 15:45 - Assessment and Plan (1) Abdominal pain Current Visit: Yes Status: Acute Assessment and plan: Patient reports pain 6/10. Added Fentanyl patch for improved control. Qualifiers: Abdominal location: epigastric Qualified Code(s): R10.13 - Epigastric pain (2) Pancreatic abnormality Current Visit: Yes Status: Acute (3) Liver mass Current Visit: Yes Status: Acute Assessment and plan: Oncology following. Patient desires no further treatment. (4) Pancreatic mass Current Visit: Yes Status: Acute (5) Goals of care, counseling/discussion Current Visit: Yes Status: Acute Assessment and plan: Conducted goals of care assessment with patient. Patient desires to go home with [facility] on 05/10/18. Desires CODE STATUS changed to DNRCC. Desires to go home and be kept comfortable. DME needs Wheelchair. Patient's son, daughter in law, and daughter in laws sister present and in agreement of plan. Calista Lange CNP updated with plan. Referral will be called 05/10/18, as referral line did not answer today. Palliative-CN HPI - Data of Consult Patient: new to practice Consult date: 05/09/18 Requesting Physician: Debbie Casiano MD Primary Care Provider: Ward Jordan DO - Consult Narrative Palliative Care/Comfort Measures: Palliative care Reason for consult: hospice/pain, pancreatic ca History of present illness: Ms. Arora is a 62 year old female Patient arrived to [facility] on 05/07/18, with worsening abdominal pain times 3 days; CT scan performed showing: Abnormal 3.7 x 3.6 cm heterogeneous, though primarily low-attenuation, mass within the pancreas, scattered nodules/masses with mild lymphadenopathy and cholelithiasis. PMH: Arthritis, DM, Fibromyalgia, HTN. Liver Biopsy performed. Oncology recommendations appreciated. Palliative care consulted for pancreatic mass with liver mets, goals of care discussion, hospice and pain control. Patient lying in bed upon arrival. Patient alert and oriented times 3. Patient reports abdominal pain, rated a 5/10; 8/10 tolerable. Patient denies nausea, vomiting, and dyspnea. CC: Debbie Casiano MD - Time Spent with Patient Time: Total time spent is greater than 50% in coordination of care (as documented) at patient's floor/unit and/or counseling patient: Time with patient: 60 minutes Past Med Surg Social Fam HX - Past Medical History Medical history: arthritis, diabetes, fibromyalgia, hypertension, other Additional medical history: chronic back pain, chronic hip pain Psychiatric history: no psych history - Past Surgical History Surgical History: no surgical history - Social History Smoking Status: Current every day smoker Packs per day: 2 Smokeless Tobacco Status: No Alcohol use: none Drug use: none - Family History Sister Hx Family Reproductive Disorders: Yes Medications and Allergies Amlodipine Besylate 10 mg PO DAILY 05/07/18 [History] Aspirin [Lo-Dose Aspirin EC] 81 mg PO DAILY 05/07/18 [History] Furosemide [Lasix] 20 mg PO DAILY 05/07/18 [History] Insulin Glargine,Hum.rec.anlog [Lantus Solostar] 28 unit SQ HS 05/07/18 [History] Levothyroxine Sodium [Levoxyl] 75 mcg PO DAILY 05/07/18 [History] Lisinopril [Zestril] 20 mg PO DAILY 05/07/18 [History] Meloxicam 7.5 mg PO DAILY 05/07/18 [History] Metformin HCl 500 mg PO BID 05/07/18 [History] Pioglitazone HCl 30 mg PO DAILY 05/07/18 [History] Pregabalin [Lyrica] 150 mg PO TID 05/07/18 [History] Rosuvastatin Calcium 40 mg PO DAILY 05/07/18 [History] Tizanidine HCl 4 mg PO HS 05/07/18 [History] Allergy/AdvReac Type Severity Reaction Status Date / Time codeine AdvReac Vomiting Verified 05/07/18 11:12 - Constitutional Constitutional ROS PAL: no decreased appetite, no lethargy, no weight loss - Cardiovascular Cardiovascular ROS: dyspnea on exertion, no chest pain - Respiratory Respiratory: pain on inspiration - Gastrointestinal Gastrointestinal: abdominal pain, nausea, vomiting - Musculoskeletal Musculoskeletal ROS IM: back pain - Psychiatric Psychiatric general PM: no anxiety Palliative Care-Exam - Constitutional Vitals: Temp Pulse Resp BP Pulse Ox 97.7 F 60 16 123/74 98 05/09/18 13:43 05/09/18 13:43 05/09/18 13:43 05/09/18 13:43 05/09/18 13:43 General appearance: Present: cooperative, no acute distress. Absent: febrile - Head Head Exam: Present: atraumatic, normal inspection - Eye Eye exam: Present: EOMI, normal appearance - ENT ENT exam: Present: mucous membranes moist, normal external ear exam - Neck Neck exam: Present: full ROM, normal inspection - Respiratory Respiratory exam: Present: CTAB. Absent: accessory muscle use, respiratory distress - Cardiovascular Cardiovascular exam: Present: RRR, +S1, +S2 - GI/Abdominal Exam GI/Abdominal exam: Present: normal bowel sounds, soft, tenderness - Rectal Rectal exam: Present: deferred - Extremities Exam Extremities exam: Present: full ROM, normal inspection. Absent: pedal edema - Back Exam Back exam: Present: full ROM, normal inspection - Neurological Exam Neurological exam: Present: alert, oriented X3. Absent: altered - Expanded Neurological Exam Patient oriented to: Present: person, place, time Coma Scale Eye Opening: Spontaneous Coma Scale Motor Response: Obeys Commands Coma Scale Verbal Response: Oriented Coma Scale Total: 15 - Skin Skin exam: Present: dry, intact, warm Internal Medicine - CN: Reslt - Labs CBC & Chem 7: 05/07/18 11:06 05/07/18 11:06 - ABG Interpretation ABG results: PT/INR, D-dimer PT 13.1 Seconds (9.4-12.1) H 05/07/18 11:30 - Impressions Impressions Chest CT 05/08/18 11:58 IMPRESSION: 1. Cardiomegaly with no evidence of metastatic disease to the chest. 2. Innumerable hepatic lesions concerning for metastatic disease. 3. Peripancreatic edema with indeterminate dov hepatis lymphadenopathy. Refer to CT imaging 05/07/2018. D/ / 05/08/2018 15:24:19 Konstantin Hernandez MD / concepción Interpreting Provider: Konstantin Hernandez MD Biopsy CT 05/09/18 07:00 IMPRESSION: Successful CT guided core biopsy left lobe liver mass. D/ / Maikel Hanley MD / Maikel Hanley MD Interpreting Provider: Maikel Hanley MD Consult Discharge Plan - Plan Referrals: Ward Jordan DO [Primary Care Provider] - 05/16/18 1:00 pm Palliative Quality Palliative Quality: Screen for Code Status: Yes, Screen for Goals of Care: Yes, Screen for Pain: Yes, If Pain Regimen Started, Initiate Bowel Regimen: NA, Screen for Nausea/Vomitting: Yes Code Status: 05/07/18 15:00 Resuscitation Status: Active [RES] Routine Comment: Resuscitation Status: Full Code
[2018-05-09] MEDS ORDERED: *HR* FentaNYL PATCH 25 MCG PATCH TD SCH (16:45)
--- NOTE | 2018-05-09 17:13 | Electrocardiograph Report ---
[address] [address] Test Date: 2018-05-07 Pat Name: Santa Arora Department: [id number] Room: 3B13 Gender: F Claims Coordinator: : 1955 Requested By: Rayo Mccrary Order Number: [id number] Reading MD: Jose George Measurements Intervals [place] Rate: 71 P: 51 IA: 166 QRS: 39 QRSD: 84 T: 42 QT: 388 QTc: 422 Interpretive Statements Sinus rhythm Electronically Signed On 05-09-2018 17:12:06 EST by Jose George
[2018-05-09] MEDS: tiZANidine 4 MG TABLET PO SCH (21:32)
[2018-05-09] MEDS: Insulin DETEMIR 100 UNIT/ML X5UNITS SQ SCH (21:33)
[2018-05-10] MEDS: traMADol 50 MG TABLET PO PRN (04:05)
[2018-05-10] MEDS: *HR* Heparin 5,000 UNIT/ML VIAL SQ SCH (05:59)
[2018-05-10] MEDS: *HR* OxyCODONE/APAP 5/325 TABLET PO PRN ×2 (06:29→12:00)
[2018-05-10] MEDS: Insulin LISPRO 300 UNITS/3 ML VIAL SQ SCH ×2 (07:27→12:00)
[2018-05-10] MEDS: amLODIPine 5 MG TABLET PO SCH (07:33)
[2018-05-10] MEDS: Pregabalin 75 MG CAPSULE PO SCH (07:33)
[2018-05-10] MEDS: Furosemide 20 MG TABLET PO SCH (07:33)
[2018-05-10] MEDS: Lisinopril 20 MG TABLET PO SCH (07:33)
[2018-05-10 10:52] VITALS: BP 107/65
--- NOTE | 2018-05-10 11:24 | Discharge Summary ---
- NOTES TO OUTPATIENT PROVIDER Notes to Outpatient Provider: Patient now DNR comfort care and hospice given metastatic pancreatic cancer per patient request. f/u liver biopsy result. Orders not resulted at time of discharge: Pending orders 05/07/18 11:30 Cancer Antigen-GI (CA 19-9) Routine Date of Encounter: 05/10/18 Time of Encounter: 11:20 - Discharge Diagnosis (1) Pancreatic mass Priority: Primary Status: Acute (2) Diabetes Priority: Secondary Status: Acute Qualifiers: Diabetes mellitus type: type 2 Diabetes mellitus local intermodal truck driver insulin use: with local intermodal truck driver use Qualified Code(s): E11.9 - Type 2 diabetes mellitus without complications; Z79.4 - custodial (current) use of insulin (3) HTN (hypertension) Priority: Secondary Status: Acute Qualifiers: Hypertension type: essential hypertension Qualified Code(s): I10 - Essential (primary) hypertension (4) Fibromyalgia Priority: Secondary Status: Acute (5) Abdominal pain Priority: Primary Status: Acute Qualifiers: Abdominal location: epigastric Qualified Code(s): R10.13 - Epigastric pain (6) Liver mass Priority: Primary Status: Acute (7) Lung nodule Priority: Secondary Status: Acute Hospital course: Ms. Arora is a 62 year old female with past medical history of diabetes, COPD, fibromyalgia, hypertension came in with abdominal pain and intractable nausea and vomiting. Patient was found to have evidence of pancreatic primary cancer with metastasis to liver on CAT scan. Patient was seen by oncology and patient had liver biopsy done by interventional radiology for metastatic lesion. Patient chose not to undergo any therapy and let nature takes its course. Palliative care consult was obtained and after discussion patient was made DNR comfort care and arrangement was made for home hospice as well as pain and symptomatic medication were prescribed by palliative care team. Patient otherwise stable to be discharged home with home hospice. Discharge discussed with: patient, family, nurse, alliances consultant - Time Spent with Patient Total time spent providing and/or coordinating discharge services: Greater than 30 minutes (38) - Discharge Medications Prescriptions: Ondansetron ODT [Zofran ODT] 4 mg SL Q4HR PRN 4 Days #24 tab.rapdis PRN Reason: Nausea OxyCODONE/APAP 5/325 [Percocet 5/325 MG] 1 - 2 tab PO Q4HR PRN 4 Days #48 tablet PRN Reason: Pain fentaNYL [Fentanyl] 25 mcg TD Q3D 4 Days #2 patch.td72 LORazepam Oral Conc [Ativan Oral Conc] 1 mg PO Q4H PRN 4 Days #15 mls PRN Reason: Anxiety Promethazine [Phenergan] 12.5 mg PO Q4H PRN 4 Days #24 tablet PRN Reason: Nausea Sennosides/Docusate Sodium [Senna Plus] 2 each PO BID #32 tablet Home Medications: Amlodipine Besylate 10 mg PO DAILY 05/07/18 [History] Aspirin [Lo-Dose Aspirin EC] 81 mg PO DAILY 05/07/18 [History] Furosemide [Lasix] 20 mg PO DAILY 05/07/18 [History] Insulin Glargine,Hum.rec.anlog [Lantus Solostar] 28 unit SQ HS 05/07/18 [History] Levothyroxine Sodium [Levoxyl] 75 mcg PO DAILY 05/07/18 [History] Lisinopril [Zestril] 20 mg PO DAILY 05/07/18 [History] Meloxicam 7.5 mg PO DAILY 05/07/18 [History] Metformin HCl 500 mg PO BID 05/07/18 [History] Pioglitazone HCl 30 mg PO DAILY 05/07/18 [History] Pregabalin [Lyrica] 150 mg PO TID 05/07/18 [History] Rosuvastatin Calcium 40 mg PO DAILY 05/07/18 [History] Tizanidine HCl 4 mg PO HS 05/07/18 [History] LORazepam Oral Conc [Ativan Oral Conc] 1 mg PO Q4H PRN 4 Days #15 mls 05/10/18 [Rx] Ondansetron ODT [Zofran ODT] 4 mg SL Q4HR PRN 4 Days #24 tab.rapdis 05/10/18 [Rx] OxyCODONE/APAP 5/325 [Percocet 5/325 MG] 1 - 2 tab PO Q4HR PRN 4 Days #48 tablet 05/10/18 [Rx] Promethazine [Phenergan] 12.5 mg PO Q4H PRN 4 Days #24 tablet 05/10/18 [Rx] Sennosides/Docusate Sodium [Senna Plus] 2 each PO BID #32 tablet 05/10/18 [Rx] fentaNYL [Fentanyl] 25 mcg TD Q3D 4 Days #2 patch.td72 05/10/18 [Rx] Allergies/Adverse Reactions: Allergy/AdvReac Type Severity Reaction Status Date / Time codeine AdvReac Vomiting Verified 05/07/18 11:12 Date of admission: 05/07/18 15:00 Primary care physician: Ward Jordan DO Consults: 05/07/18 14:13 Consult to Oncology Hematology [CONS] Stat Consulting Provider: Bre Gupta Reason for Consult: pancreatic & liver mass discussed with DR Vilchis Time Notified: 14:14 Call Completed: Yes 05/09/18 07:40 Consult to Interventional Radiology [CONS] Routine Consulting Provider: Radiology Interventional Cols Reason for Consult: CT guided liver biopsy Call Completed: Yes 05/09/18 13:52 Consult to Palliative Care [CONS] Routine Comment: Consulting Provider: Palliative Care Akila Reason for Consult: Pancreatic mass with liver mets, s/p bx today, patient declining treatment, wishes to discuss hospice, pain control recs Call Completed: Yes Discharging clinician: Debbie Worthy Constitutional Vitals: Temp Pulse Resp BP Pulse Ox 97.6 F 53 16 107/65 95 05/10/18 10:49 05/10/18 10:49 05/10/18 10:49 05/10/18 10:49 05/10/18 10:49 Exam: Constitutional: Vitals as noted. Conversant. No Apparent Distress. Respiratory : mild crackles at base. No accessory muscle use, rales, rhonchi or wheezes Cardiovascular : RRR, +S1, +S2. no murmur, gallop, rubs. No chest wall tenderness GI/Abdominal : Obese, Soft, nontender, Non-distended, normal bowel sounds, soft, no peritoneal signs Musculoskeletal: no deformity noted. no edema or cyanosis. Neurological: AO X3, CN II-XII grossly intact, grossly normal motor and sensory exam. - Patient Status Disposition: Home, Self-Care Condition: Fair - Discharge Instructions Follow Up With: Ward Jordan DO [Primary Care Provider] - 05/16/18 1:00 pm Michel Shell DO [Partnered Physician] - 06/22/18 11:25 am Forms: ED Satisfaction Letter, Work/School Release - Diet and Activity Activity: increase activity as tolerated
--- NOTE | 2018-05-10 11:29 | Palliative Progress Note ---
Date of Encounter: 05/10/18 Time of Encounter: 09:30 - Assessment and plan (1) Abdominal pain Current Visit: Yes Status: Acute Assessment and plan: Patient reports pain 4/10 today, reports best she has felt. Patient has taken 1 dose Percocet and 1 dose Ultram past effectiveness time for Fentanyl Patch. Patient reports patch has helped a great deal. Prescriptions written for: Fentanyl patch, Percocet for discharge. Qualifiers: Abdominal location: epigastric Qualified Code(s): R10.13 - Epigastric pain (2) Pancreatic abnormality Current Visit: Yes Status: Acute (3) Liver mass Current Visit: Yes Status: Acute Assessment and plan: Patient decided no cancer treatment. KTaya June LEAD SYSTEMS DEVELOPER made aware. (4) Pancreatic mass Current Visit: Yes Status: Acute (5) Goals of care, counseling/discussion Current Visit: Yes Status: Acute Assessment and plan: Met with patient regarding GOC. Patient to be discharged home with [facility]. Called referral to [facility]. DME needs Wheelchair. Patient desires to transport home via family. Prescriptions written and transmitted to [facility]. Notified Primary RN of need to call [facility] at time of discharge to coordinate enrollment. Notified Dr. Casiano of patient's ready for discharge and prescriptions that were written. Patient is going to notify her family when discharge is ready. (6) Anxiety Current Visit: Yes Status: Acute Assessment and plan: Patient reports some Anxiety. Wrote prescription for Ativan SL PRN for discharge. (7) Constipation Current Visit: Yes Status: Acute Assessment and plan: Patient suffering from constipation. Ordered Senna Plus scheduled for discharge. Patient expressed desire to have fleet enema post discharge. Qualifiers: Qualified Code(s): K59.00 - Constipation, unspecified (8) Nausea Current Visit: Yes Status: Acute Assessment and plan: Patient reporting some nausea. Wrote prescriptions for Phenergan and Zofran for discharge. - Time Spent With Patient Total time spent is greater than 50% in coordination of care (as documented) at patient's floor/unit and/or counseling patient: 25 - 35 minutes - Subjective Interval history: Patient lying in bed on right side upon arrival for assessment. Patient reports she feels in shock by diagnosis, tearful, but also stands by decision for no further treatment. No family present at bedside. Patient alert and oriented times 3. Desires to go home today. - Constitutional Vitals: Abnormal lab results PT 13.1 Seconds (9.4-12.1) H 05/07/18 11:30 Chloride 109 mEq/L (98-107) H 05/07/18 11:06 Carbon Dioxide 22 mEq/L (23-29) L 05/07/18 11:06 Glucose 130 mg/dL (70-105) H 05/07/18 11:06 POC Glucose 195 mg/dL (70-99) H 05/09/18 20:10 Carcinoembryonic Ag 67.3 ng/mL (Less than 5.0) H 05/07/18 11:06 Ur Leukocyte Esterase Small (Negative) H 05/07/18 13:05 Ur Squamous Epith Cells Moderate per lpf (None-Few) H 05/07/18 13:05 Ur Culture Indicated? YES (NO) A 05/07/18 13:05 General appearance: Present: cooperative, mild distress, obese - Head Head exam: Present: atraumatic, normal inspection - Eye Eye exam: Present: EOMI, normal appearance. Absent: periorbital swelling, periorbital tenderness Pupils: Present: normal accommodation, PERRL - ENT ENT exam: Present: mucous membranes moist, normal external ear exam - Neck Neck exam: Present: full ROM, normal inspection - Respiratory Respiratory exam: Present: CTAB. Absent: accessory muscle use, respiratory distress - Cardiovascular Cardiovascular exam: Present: +S1, +S2 - GI/Abdominal GI/Abdominal exam: Present: diminished bowel sounds, distended, soft, tenderness - Rectal Rectal exam: Present: deferred - Extremities Exam Extremities exam: Present: full ROM, normal capillary refill, normal inspection. Absent: pedal edema, tenderness - Back Exam Back exam: Present: full ROM - Neurological Exam Neurological exam: Present: alert, oriented X3, strengths equal and symetr throughout. Absent: altered - Psychiatric Psychiatric exam: Present: anxious - Skin Skin exam: Present: intact, normal color, warm Palliative Quality Palliative Quality: Screen for Code Status: Yes, Screen for Goals of Care: Yes, Screen for Pain: Yes, If Pain Regimen Started, Initiate Bowel Regimen: Yes, Screen for Nausea/Vomitting: Yes Code Status: 05/07/18 15:00 Resuscitation Status: Active [RES] Routine Comment: Resuscitation Status: Full Code 05/09/18 16:31 DNR [Resuscitation Status: Active] [RES] Routine Comment: State form completed. Resuscitation Status: DNR-Comfort Care - Labs CBC & Chem 7: 05/07/18 11:06 05/07/18 11:06 Labs: Laboratory Results - last 24 hr 05/09/18 05/09/18 05/09/18 08:09 11:20 16:33 POC Glucose 121 H 115 H 220 H 05/09/18 20:10 POC Glucose 195 H - Impressions Impressions Chest CT 05/08/18 11:58 IMPRESSION: 1. Cardiomegaly with no evidence of metastatic disease to the chest. 2. Innumerable hepatic lesions concerning for metastatic disease. 3. Peripancreatic edema with indeterminate dov hepatis lymphadenopathy. Refer to CT imaging 05/07/2018. D/ / 05/08/2018 15:24:19 Konstantin Hernandez MD / concepción Interpreting Provider: Konstantin Hernandez MD Biopsy CT 05/09/18 07:00 IMPRESSION: Successful CT guided core biopsy left lobe liver mass. D/ / Maikel Hanley MD / Maikel Hanley MD Interpreting Provider: Maikel Hnaley MD - ABG Interpretation ABG results: PT/INR, D-dimer PT 13.1 Seconds (9.4-12.1) H 05/07/18 11:30 Consult Discharge Plan - Plan Referrals: Ward Jordan DO [Primary Care Provider] - 05/16/18 1:00 pm Michel Shell DO [Partnered Physician] - 06/22/18 11:25 am Prescriptions: Ondansetron ODT [Zofran ODT] 4 mg SL Q4HR PRN 4 Days #24 tab.rapdis PRN Reason: Nausea OxyCODONE/APAP 5/325 [Percocet 5/325 MG] 1 - 2 tab PO Q4HR PRN 4 Days #48 tablet PRN Reason: Pain fentaNYL [Fentanyl] 25 mcg TD Q3D 4 Days #2 patch.td72 LORazepam Oral Conc [Ativan Oral Conc] 1 mg PO Q4H PRN 4 Days #15 mls PRN Reason: Anxiety Promethazine [Phenergan] 12.5 mg PO Q4H PRN 4 Days #24 tablet PRN Reason: Nausea Sennosides/Docusate Sodium [Senna Plus] 2 each PO BID #32 tablet
[2018-05-10] MEDS: Ondansetron 4 MG/2 ML VIAL IVP PRN (12:00)
--- NOTE | 2018-05-10 12:52 | Physician Discharge Referral ---
Home Health/Hosp Referral Info Transfer to: Home Health - Diagnosis (1) Pancreatic mass Status: Acute (2) Diabetes Status: Acute (3) HTN (hypertension) Status: Acute (4) Fibromyalgia Status: Acute (5) Abdominal pain Status: Acute (6) Liver mass Status: Acute (7) Lung nodule Status: Acute - Respiratory Orders Smoking Cessation: Smoking cessation has been advised. For more information, call the [place] Tobacco Quit Line at 8-396-JNCL-NOW. - Services Needed Following services are medically necessary services: Nursing, Med Social Work - Transfer Medications Prescriptions: Ondansetron ODT [Zofran ODT] 4 mg SL Q4HR PRN 4 Days #24 tab.rapdis PRN Reason: Nausea OxyCODONE/APAP 5/325 [Percocet 5/325 MG] 1 - 2 tab PO Q4HR PRN 4 Days #48 tablet PRN Reason: Pain fentaNYL [Fentanyl] 25 mcg TD Q3D 4 Days #2 patch.td72 LORazepam Oral Conc [Ativan Oral Conc] 1 mg PO Q4H PRN 4 Days #15 mls PRN Reason: Anxiety Promethazine [Phenergan] 12.5 mg PO Q4H PRN 4 Days #24 tablet PRN Reason: Nausea Sennosides/Docusate Sodium [Senna Plus] 2 each PO BID #32 tablet Home Medications: Amlodipine Besylate 10 mg PO DAILY 05/07/18 [History] Aspirin [Lo-Dose Aspirin EC] 81 mg PO DAILY 05/07/18 [History] Furosemide [Lasix] 20 mg PO DAILY 05/07/18 [History] Insulin Glargine,Hum.rec.anlog [Lantus Solostar] 28 unit SQ HS 05/07/18 [History] Levothyroxine Sodium [Levoxyl] 75 mcg PO DAILY 05/07/18 [History] Lisinopril [Zestril] 20 mg PO DAILY 05/07/18 [History] Meloxicam 7.5 mg PO DAILY 05/07/18 [History] Metformin HCl 500 mg PO BID 05/07/18 [History] Pioglitazone HCl 30 mg PO DAILY 05/07/18 [History] Pregabalin [Lyrica] 150 mg PO TID 05/07/18 [History] Rosuvastatin Calcium 40 mg PO DAILY 05/07/18 [History] Tizanidine HCl 4 mg PO HS 05/07/18 [History] LORazepam Oral Conc [Ativan Oral Conc] 1 mg PO Q4H PRN 4 Days #15 mls 05/10/18 [Rx] Ondansetron ODT [Zofran ODT] 4 mg SL Q4HR PRN 4 Days #24 tab.rapdis 05/10/18 [Rx] OxyCODONE/APAP 5/325 [Percocet 5/325 MG] 1 - 2 tab PO Q4HR PRN 4 Days #48 tablet 05/10/18 [Rx] Promethazine [Phenergan] 12.5 mg PO Q4H PRN 4 Days #24 tablet 05/10/18 [Rx] Sennosides/Docusate Sodium [Senna Plus] 2 each PO BID #32 tablet 05/10/18 [Rx] fentaNYL [Fentanyl] 25 mcg TD Q3D 4 Days #2 patch.td72 05/10/18 [Rx] Allergies/Adverse Reactions: Allergy/AdvReac Type Severity Reaction Status Date / Time codeine AdvReac Vomiting Verified 05/07/18 11:12 Certification: Further, I certify that my clinical findings support that this patient is homebound (i.e. absences from home require considerable and taxing effort and are for medical reasons or sabianism services or infrequently or short duration when for other reasons) because: Homebound Reason: Patient requires assistance of a person or device to safely leave home Attestation: My signature below is to certify that this patient is under my care and that I, or nurse practitioner, or a physician's delinquent tax collection assistant working with me, has a anuf-[id number] encounter with this patient.
[2018-05-10] MEDS: *HR* Promethazine 25 MG/ML VIAL IVP PRN (13:39)
--- NOTE | 2018-05-10 16:50 | Oncology Inp Progress Note ---
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 She will be scheduled outpatient for follow-up and discussion of biopsy results. Patient did not want any active therapy palliative care was consulted yesterday by team. She denies any nauseousness he is tolerating her medications and has a fentanyl patch. She will be discharged on to follow-up as an outpatient. Plan of care discussed with patient in detail. Oncology: Subj Interval history: Patient denies any nausea. Her pain was well-controlled yesterday she has been given a fentanyl patch and she feels fine this morning. She is hopeful she can go home she completed a liver biopsy yesterday. - Constitutional General appearance: no acute distress - Head Head exam: Present: atraumatic, normal inspection - Eye Eye exam: Present: sclera anicteric - ENT ENT exam: Present: mucous membranes dry - Respiratory Respiratory exam: Present: CTAB - Cardiovascular Cardiovascular exam: Present: +S1, +S2 - GI/Abdominal GI/Abdominal exam: Present: normal bowel sounds, soft - Extremities Exam Extremities exam: Present: normal inspection - Neurological Exam Neurological exam: Present: alert, CN II-XII intact, oriented X3, no focal deficits - Psychiatric Psychiatric exam: Present: normal affect Oncology: Obj Data - Labs CBC & Chem 7: 05/07/18 11:06 05/07/18 11:06 Consult Discharge Plan - Plan Referrals: Ward Jordan DO [Primary Care Provider] - 05/16/18 1:00 pm Michel Shell DO [Partnered Physician] - 06/22/18 11:25 am Prescriptions: Ondansetron ODT [Zofran ODT] 4 mg SL Q4HR PRN 4 Days #24 tab.rapdis PRN Reason: Nausea OxyCODONE/APAP 5/325 [Percocet 5/325 MG] 1 - 2 tab PO Q4HR PRN 4 Days #48 tablet PRN Reason: Pain fentaNYL [Fentanyl] 25 mcg TD Q3D 4 Days #2 patch.[id number] LORazepam Oral Conc [Ativan Oral Conc] 1 mg PO Q4H PRN 4 Days #15 mls PRN Reason: Anxiety Promethazine [Phenergan] 12.5 mg PO Q4H PRN 4 Days #24 tablet PRN Reason: Nausea Sennosides/Docusate Sodium [Senna Plus] 2 each PO BID #32 tablet Inpatient Charges Provider: Dr. Chely Saldana Follow up - Inpatient: [id number]
== END 2018-05-10 14:43 | disposition home or self-care (01) | DRG 436 ==
LOC: EMEROOARM 10:57 → 3BNU 10:57 → SUATTDRO 15:00 → 3BNU 15:08
PROVIDERS: ADMIT Hospitalist; ATTEND Internal Medicine
PROC: IRLIVER (2018-05-09 10:30)